=== PATIENT | male | born 1970 | race Caucasian/White ===

== ENCOUNTER 2023-07-14 12:59 | Emergency (ER) | payer BC ==
[~2023-07-14] VITALS: Ht 172.7 cm; Wt 84.0 kg
[2023-07-14 13:26] VITALS: BP 144/84; PULSE 85; RESP 18; TEMP 97.8; O2SAT 100
[2023-07-14] MEDS ORDERED: CEPH-585 PO (13:55)
[2023-07-14] MEDS: TETanus/Pertussis (Acell)/Diphther VAC/PF (Tdap-Adult) 0.5ml syringe IMVAC ONE (14:09)
== END 2023-07-14 14:52 | disposition home or self-care (01) ==
LOC: ER 13:00
DX: S61.511A Laceration without foreign body of right wrist, initial encounter (principal); Z79.2 Long term (current) use of antibiotics; X58.XXXA Exposure to other specified factors, initial encounter; Y93.89 Activity, other specified; Y92.89 Other specified places as the place of occurrence of the external cause; Y99.8 Other external cause status
CPT/HCPCS: 12001; 73130; 90471; 90715; 99283